=== PATIENT | male | born 1965 | race Caucasian/White ===

== ENCOUNTER 2016-11-16 18:38 | Emergency (ER) | payer SELFPAY | END 2016-11-17 | disposition left against medical advice (07) | LOC: ER 21:02 | DX: S01.81XA Laceration without foreign body of other part of head, initial encounter (principal); X58.XXXA Exposure to other specified factors, initial encounter; Y93.89 Activity, other specified; Y99.8 Other external cause status; Y92.89 Other specified places as the place of occurrence of the external cause ==

== ENCOUNTER 2017-07-27 14:31 | Emergency (ER) | payer MEDICAID ==
[~2017-07-27] VITALS: Ht 175.3 cm; Wt 78.0 kg
[2017-07-27] MEDS ORDERED: DIAZEPAM 2 MG TABLET PO ONE (18:45)
[2017-07-27] MEDS ORDERED: ONDANSETRON 4MG ODT PO ONE (18:45)
[2017-07-27] MEDS ORDERED: HYDROCODONE/ACETAMINOPHEN 5/325MG TABLET PO ONE (18:45)
[2017-07-27 18:47] VITALS: BP 177/98
== END 2017-07-27 19:16 | disposition home or self-care (01) ==
LOC: ER 15:20
DX: M33.20 Polymyositis, organ involvement unspecified (principal); I10 Essential (primary) hypertension; G89.29 Other chronic pain; M54.2 Cervicalgia; Z90.49 Acquired absence of other specified parts of digestive tract
CPT/HCPCS: 99284; Q0162

== ENCOUNTER 2020-07-05 12:50 | Emergency (ER) | payer MEDICAID, OTHER ==
[~2020-07-05] VITALS: Ht 167.6 cm; Wt 92.0 kg
[~2020-07-05 12:50] MED LIST: METH2.5T PO; P50 PO
[2020-07-05] MEDS ORDERED: TETANUS, DIPHTHERIA, PERTUSSIS VAC/PF 0.5ML (>7YR OLD) IM ONE (14:00)
[2020-07-05] MEDS ORDERED: HYDROCODONE/ACETAMINOPHEN 5/325MG TABLET PO ONE (14:00)
[2020-07-05 16:20] VITALS: BP 159/98
== END 2020-07-05 16:21 | disposition home or self-care (01) ==
LOC: ER 12:50
DX: S01.81XA Laceration without foreign body of other part of head, initial encounter (principal); W18.39XA Other fall on same level, initial encounter; Y93.89 Activity, other specified; Y92.89 Other specified places as the place of occurrence of the external cause; Y99.8 Other external cause status
CPT/HCPCS: 12013; 70486; 90471; 90715; 99285

== ENCOUNTER 2021-06-03 11:42 | Emergency (ER) | payer MEDICAID, OTHER ==
[~2021-06-03] VITALS: Ht 172.7 cm; Wt 78.0 kg
[2021-06-03] MEDS ORDERED: ACETAMINOPHEN 325MG TABLET PO ONE (15:00)
[2021-06-03 15:09] LABS: HEMATOCRIT. 35.1 % (42.0-52.0); HEMOGLOBIN. 11.9 g/dL (14.0-18.0); MEAN CORPUSCULAR HEMOGLOBIN 28.5 pg (28.0-32.0); MEAN CORPUSCULAR VOLUME 84.2 fL (80.0-94.0); PLATELET 436 x1000/uL (130-400); RED BLOOD CELL COUNT 4.16 mill/uL (4.7-6.1); RED CELL DISTRIBUTION WIDTH 17.1 % (11.6-14.6)
[2021-06-03 15:14] LABS: CHLORIDE 98 mEq/L (98-107)
[2021-06-03 15:17] LABS: PROTHROMBIN TIME 10.9 sec (9.6-11.0)
[2021-06-03 15:18] LABS: ETHANOL BLOOD < 10 mg/dL
[2021-06-03 15:59] LABS: PLATELET ESTIMATE INCREASED
[2021-06-03] MEDS ORDERED: SODIUM CHLORIDE 0.9% 1,000 ML IV ONE (16:00)
[2021-06-03 16:34] LABS: CLARITY URINE CLEAR (CLEAR); COLOR URINE DARK YELLOW (YELLOW); KETONES URINE 1+ (NEGATIVE); LEUKOCYTE ESTERASE URINE NEGATIVE (NEGATIVE); NITRITE URINE NEGATIVE (NEGATIVE); OCCULT BLOOD URINE NEGATIVE (NEGATIVE); PROTEIN URINE 1+ (NEGATIVE); SPECIFIC GRAVITY URINE 1.029 (1.005-1.030); UROBILINOGEN URINE 0.2 E.U./dL (0.2-1.0)
[2021-06-03 16:49] LABS: *BARBITURATES SCREEN URINE NEGATIVE (NEGATIVE)
[2021-06-03 16:51] LABS: *BENZODIAZEPINES SCREEN URINE NEGATIVE (NEGATIVE); *COCAINE SCREEN URINE NEGATIVE (NEGATIVE); CANNABINOID URINE SCREEN NEGATIVE (NEGATIVE); METHADONE URINE SCREEN NEGATIVE (NEGATIVE); OPIATES URINE SCREEN NEGATIVE (NEGATIVE); PHENCYCLIDINE URINE SCREEN NEGATIVE (NEGATIVE)
[2021-06-03 16:56] LABS: *AMPHETAMINES SCREEN URINE NEGATIVE (NEGATIVE)
[2021-06-03] MEDS ORDERED: HYDROCODONE/ACETAMINOPHEN 5/325MG TABLET PO ONE (17:15)
[2021-06-03 19:41] VITALS: BP 137/82
== END 2021-06-03 20:31 | disposition short-term general hospital (02) ==
LOC: ER 11:42
DX: S01.81XA Laceration without foreign body of other part of head, initial encounter (principal); R51.9 Headache, unspecified; R53.1 Weakness; R26.9 Unspecified abnormalities of gait and mobility; W01.198A Fall on same level from slipping, tripping and stumbling with subsequent striking against other object, initial encounter; Y93.89 Activity, other specified; Y92.89 Other specified places as the place of occurrence of the external cause; M33.10 Other dermatomyositis, organ involvement unspecified; Z91.81 History of falling
CPT/HCPCS: 36415; 70450; 70486; 71045; 80053; 80305; 80320; 81003; 83880; 84484; 85025; 85610; 93005; 96360; 99285; J7030; G0480

== ENCOUNTER 2021-09-18 12:28 | Emergency (ER) | payer OTHER, MEDICAID ==
[~2021-09-18] VITALS: Ht 180.3 cm; Wt 56.0 kg
[2021-09-18] MEDS ORDERED: KETOROLAC 30MG/ML VIAL IV STA (13:45)
[2021-09-18] MEDS ORDERED: SODIUM CHLORIDE 0.9% 1,000 ML IV ONE (13:45)
[2021-09-18] MEDS ORDERED: ONDANSETRON HCL 4MG/2ML INJ IV STA (13:45)
[2021-09-18 15:16] LABS: CLARITY URINE CLEAR (CLEAR); COLOR URINE DARK YELLOW (YELLOW); KETONES URINE 1+ (NEGATIVE); LEUKOCYTE ESTERASE URINE NEGATIVE (NEGATIVE); NITRITE URINE NEGATIVE (NEGATIVE); OCCULT BLOOD URINE NEGATIVE (NEGATIVE); PH URINE 5.5 (4.5-8.0); PROTEIN URINE TRACE (NEGATIVE); SPECIFIC GRAVITY URINE 1.024 (1.005-1.030); UROBILINOGEN URINE 0.2 E.U./dL (0.2-1.0)
[2021-09-18 16:23] LABS: HEMATOCRIT. 36.8 % (42.0-52.0); HEMOGLOBIN. 12.3 g/dL (14.0-18.0); MEAN CORPUSCULAR HEMOGLOBIN 27.7 pg (28.0-32.0); MEAN CORPUSCULAR VOLUME 82.8 fL (80.0-94.0); MEAN PLATELET VOLUME 7.5 fl (7.4-10.4); PLATELET 354 x1000/uL (130-400); RED BLOOD CELL COUNT 4.45 mill/uL (4.7-6.1); RED CELL DISTRIBUTION WIDTH 18.6 % (11.6-14.6)
[2021-09-18 16:34] LABS: CHLORIDE 101 mEq/L (98-107)
[2021-09-18] MEDS ORDERED: LOPERAMIDE HCL 2MG CAPSULE PO ONE (16:45)
[2021-09-18 17:43] LABS: PLATELET ESTIMATE NORMAL
[2021-09-18] MEDS ORDERED: LOPE2CAP MT (18:34)
[2021-09-18] MEDS ORDERED: OMEP20CA14 MT (18:34)
[2021-09-18] MEDS ORDERED: ONDA4TAB11 PO (18:34)
[2021-09-18 19:06] VITALS: BP 135/65
== END 2021-09-18 19:10 | disposition home or self-care (01) ==
LOC: ER 12:39
DX: R10.13 Epigastric pain (principal); E86.0 Dehydration; K74.60 Unspecified cirrhosis of liver; Z90.49 Acquired absence of other specified parts of digestive tract
CPT/HCPCS: 36415; 76705; 80053; 81003; 83690; 85025; 93005; 96361; 96374; 96375; 99285; J1885; J2405; J7030